=== PATIENT | male | born 1960 ===

== ENCOUNTER 2025-04-30 13:09 | Emergency (ER) | payer OTHER ==
[~2025-04-30] VITALS: Ht 165.1 cm; Wt 82.0 kg
[2025-04-30 13:20] VITALS: O2SAT 100
[2025-04-30] MEDS ORDERED: LISI-649 MT (14:17)
[2025-04-30 14:22] VITALS: BP 208/99; PULSE 81; RESP 16; TEMP 36.7; O2SAT 100
== END 2025-04-30 14:33 | disposition home or self-care (01) ==
LOC: ER 14:09
DX: I10 Essential (primary) hypertension (principal); Z76.0 Encounter for issue of repeat prescription; Z79.899 Other long term (current) drug therapy
CPT/HCPCS: 99282